=== PATIENT | male | born 1985 | race Caucasian/White ===

== ENCOUNTER 2018-02-17 12:40 | Emergency (ER) | payer BC ==
[~2018-02-17] VITALS: Ht 185.4 cm; Wt 86.2 kg
--- NOTE | 2018-02-17 12:45 | NUR ---
DR ALMAGUER AT THE BEDSIDE FOR MSE.
[2018-02-17] MEDS ORDERED: DOCUSATE SODIUM 100 MG CAPSULE PO ONE (12:49)
[2018-02-17] MEDS ORDERED: SERT50TA14 (12:49)
[2018-02-17] MEDS ORDERED: WELLBUTRIN (12:49)
[2018-02-17] MEDS ORDERED: PROPRANOLOL (12:49)
[2018-02-17] MEDS ORDERED: DOCUSATE SODIUM 100 MG/10 ML LIQUID UDC OT ONE (13:00)
--- NOTE | 2018-02-17 13:22 | NUR ---
Irrigated the Lt ear per MD order. Pt tolorated well.
--- NOTE | 2018-02-17 13:51 | NUR ---
Patient discharged to home in stable conditon. Written and verbal after care instructions given. Patient verbalizes understanding of instructions.
[2018-02-17 13:52] VITALS: BP 112/70
== END 2018-02-17 13:57 | disposition home or self-care (01) ==
LOC: ER 12:40
DX: H61.22 Impacted cerumen, left ear (principal)
CPT/HCPCS: A4663